=== PATIENT | female | born 1985 | race Caucasian/White ===

== ENCOUNTER 2016-06-17 05:32 | Inpatient (IN) | payer BC ==
[2016-06-17] VITALS (11 sets, daily range): BP systolic 122–149; BP diastolic 60–90; Ht 171.4 cm; Wt 123.4 kg
[~2016-06-17] VITALS: Ht 171.4 cm; Wt 123.4 kg
[2016-06-17] MEDS ORDERED: PRENATAL COMPLE1 TAB PO (06:04)
[2016-06-17] MEDS ORDERED: FERROUS SULFAT325 MG PO (06:05)
[2016-06-17 06:58] LABS: HEMOGLOBIN 11.2 g/dL (12-16); MCH 27.5 pg (26.0-34.0); MCV 85.8 fL (80.0-100.0); MEAN PLATELET VOLUME 12.3 fL (7.4-10.4); RBC 4.08 10x6/uL (4.00-5.40); RDW 14.9 % (11.5-14.5)
[2016-06-17 08:24] LABS: APPEARANCE HAZY (CLEAR); BILIRUBIN NEGATIVE (NEGATIVE); COLOR YELLOW (YELLOW); EPITHELIAL CELLS 0-5 /hpf (0-5); GLUCOSE NEGATIVE (NEGATIVE); KETONE NEGATIVE (NEGATIVE); LEUKOCYTE ESTERASE NEGATIVE (NEGATIVE); NITRITE NEGATIVE (NEGATIVE); PROTEIN TRACE mg/dL (NEGATIVE); RED CELLS - URINE 0-5 /hpf (0-5); UROBILINOGEN NORMAL (NORMAL); WHITE CELLS - URINE OCC /hpf (0-5)
[2016-06-17 08:25] LABS: BACTERIA FEW /hpf (NONE SEEN); MUCUS <1+ /lpf (NONE SEEN)
--- NOTE | 2016-06-17 09:25 | NUR ---
PALPATED FUNDUS FIRM AND MIDLINE
--- NOTE | 2016-06-17 09:44 | NUR ---
PATIENT RECEIVED TO ROOM 1215. SHE IS AWAKE AND TALKATIVE. INITIALLY, SHE WAS WITHOUT COMPLAINTS OF PAIN, REMAINING NUMB. BY THE TIME I SET UP HER [place] ATTORNEY AND GOT IVF INFUSING, HER PAIN WAS INTENSIFING. BULKY DRESSING IS C/D/I, SCD'S ARE ON AND PUMPING, FF, MIDLINE, BLEEDING MODERATE. IV SITE TO THE RIGHT HAND IS WITHOUT REDNESS, SWELLING. ICE PACK PLACED ON THE INCISION. ICE PROVIDED IN CUP FOR HER TO CHEW, PER REQUEST. FOB IN THE WAITING ROOM WITH TODDLER, PER MOB REQUEST. NURSERY NURSE IN TO VISIT, RULES FOR BABY'S SAFETY DISCUSSED.
--- NOTE | 2016-06-17 10:10 | NUR ---
TORADOL GIVEN. PATINET RATES PAIN A 9, PRIMARILY ON THE RIGHT SIDE OF THE ABDOMINAL INCISION.
--- NOTE | 2016-06-17 10:20 | NUR ---
FF, MIDLINE, BLEEDING SMALL.
--- NOTE | 2016-06-17 14:20 | NUR ---
PATIENT'S BLEEDING SMALL. FF AT THE UMBILICUS. HER URINE IS PATENT TO THE BEDSIDE UROMETER. SHE HAS HAD 150CC OF URINE OUT PUT SINCE TO THE FLOOR. ENCOURAGED HER TO INCREASE HER FLUID INTAKE, FRESH ICE WATER GIVEN. IVF INFUSING PER ORDERS. PATIENT STATES THAT HER PAIN IS WELL CONTROLLED. "I FEEL MUCH BETTER SINCE YOU GAVE ME THAT TORADOL." CURRENTLY RATES HER PAIN A 3. POSITIONED FOR COMFORT AND ICE BAG REPLENISHED.
--- NOTE | 2016-06-17 16:37 | NUR ---
PATIENT SITTING UP IN HER BED, HOLDING HER INFANT. SHE DENIES NEEDS AT THIS TIME. CONFIRMS THAT THE DOUBLE NEEDLE OPERATOR IS CONTROLLING HER PAIN.
--- NOTE | 2016-06-17 17:47 | NUR ---
PATIENT SITTING UP IN HER BED. DENIES DISCOMFORT. BLEEDING SMALL. MOTHER IN LAW AT THE BEDSIDE HOLDING INFANT. 150CC OF URINE DRAINED FROM BLADDER TO [facility] UROMETER AT THIS TIME, REMAINS TRANSPARENT, GREEN.
--- NOTE | 2016-06-17 18:47 | NUR ---
FOB AND SIBLING HERE. INTRODUCTIONS MADE TO THE INFANT. NO NEEDS NOTED. ALL MEMBERS HAPPY AND VISITING.
--- NOTE | 2016-06-17 19:35 | NUR ---
PM ROUNDS MADE, PT IS TALKING TO OTHER DAUGHTER ON TELEPHONE, INFORMED PT THAT I WILL COME BACK TO DO ASSESSMENT, PT VERBALIZES UNDERSTANDING, POC DISCUSSED WITH PT ABOUT 12 HOUR POST OP, PT VERBALIZES UNDERSTANDING, DENIES NEEDS AT THIS TIME
--- NOTE | 2016-06-17 20:15 | NUR ---
PT STILL VISITING WITH FAMILY AND FRIENDS, DENIES NEEDS AT THIS TIME
--- NOTE | 2016-06-17 21:04 | NUR ---
ROUNDS MADE, PT STATES "I THINK THIS IV IS LEAKING", TUBING CONNECTION NOTE TO BE DRIPPING, MEETING PLANNER STOPPED, IV CONVERTED TO SALINE LOCK, FLUSHED WITH 10 MLS OF NS WITH NO DIFFICULTY, ADM PERCOCET AND MOTRIN PO PER MD ORDERS, SEE EMAR, PT DENIES ANY PROBLEMS TAKING PERCOCET, PT GOING TO BREASTFEED SHORTLY AND WOULD LIKE TO HAVE ASSESSMENT DONE AFTER THAT, PT DENIES FURTHER NEEDS AT THIS TIME
--- NOTE | 2016-06-17 21:30 | NUR ---
PT AT THIS TIME, PT'S MOTHER IN LAW AT BEDSIDE
--- NOTE | 2016-06-17 22:15 | NUR ---
PT FINISHED , BABY TO NSY VIA OPEN CRIB CART PER THIS RN, ASSESSMENT PER FLOW SHEET, VS OBTAINED, FF, ML, U/1, MOD BLEEDING NOTED WITH NO CLOTS, GARCIA CATH REMOVED, TIP INTACT, EMPTIED 1200 MLS OF GREEN TINGED URINE, PT UP TO BR WITH ASSISTANCE, BLANCA CARE DONE WITH WET WARM WASH CLOTHS, GOWN, BLANCA PAD AND PANTIES APPLIED, PINK PAD AND BLUE CHUX CHANGED, PT BACK TO BED, SCD'S REAPPLIED AND WORKING PROPERLY, FRESH ICE PACK TO ABD, PT REQUESTED AND SERVED JELLO AND CRISTIAN CRACKERS, ANOTHER RECLINER AND BEDDING PROVIDED TO PT'S MOTHER IN LAW, PT DENIES FURTHER NEEDS AT THIS TIME
--- NOTE | 2016-06-18 00:05 | NUR ---
PT RESTING WITH EYES CLOSED, RESP QUIET, NO DISTRESS NOTED, LEFT UNDISTURBED AT THIS TIME
--- NOTE | 2016-06-18 00:35 | NUR ---
BABY TO NSY VIA OPEN CRIB CART PER NSY NURSE
--- NOTE | 2016-06-18 01:02 | NUR ---
PT , VS OBTAINED, ADM PERCOCET PO PER MD ORDERS, SEE EMAR, PT STATES "I'M GOING TO HAVE TO GET UP TO PEE", BABY TO PT'S MOTHER IN LAWS ARMS, PT UP TO BR WITH ASSISTANCE, VOIDED BY SELF WITH NO DIFFICULTY, BLANCA BOTTLE PROVIDED FOR BLANCA CARE, ASSISTED PT WITH BLANCA PAD AND PANTIES , PT BACK TO BED, SCD'S REAPPLIED AND WORKING PROPERLY, BABY BACK TO PT'S ARMS FOR FEEDING, PT DENIES FURTHER NEEDS
--- NOTE | 2016-06-18 02:09 | NUR ---
PT TRAPPER BIRD LIGHT, PT DOZING OFF, BABY TO NSY VIA OPEN CRIB CART PER THIS RN, PT DENIES FURTHER NEEDS AT THIS TIME, PT'S MOTHER IN LAW AT BEDSIDE
--- NOTE | 2016-06-18 02:40 | NUR ---
PT RESTING WITH EYES CLOSED, RESP QUIET, NO DISTRESS NOTED, LEFT UNDISTURBED AT THIS TIME
--- NOTE | 2016-06-18 03:42 | NUR ---
PT GLASS PRESSER LIGHT, PT UP TO BR WITH ASSISTANCE, GAIT STEADY, VOIDED BY SELF WITH NO DIFFICULTY, BLANCA CARE PER PT, ASSISTED PT WITH BLANCA PAD AND PANTIES, PT BACK TO BED, SCD'S REAPPLIED AND WORKING PROPERLY, PTS MOTHER IN LAW HANDS BABY BACK TO PT FOR DIAPER CHANGE, WIPES AND DIAPER HANDED TO PT, PT DENIES FURTHER NEEDS
[2016-06-18 05:18] VITALS: BP 119/72
--- NOTE | 2016-06-18 05:18 | NUR ---
PTS MOTHER IN LAW AT CLIPPER MACHINE OPERATOR, REPORTS THAT PT NEEDS TO USE THE BR, THIS RN TO ROOM, PT UP TO BR WITH ASSISTANCE, GAIT STEADY, VOIDED BY SELF WITH NO DIFFICULTY, DOES OWN BLANCA CARE, ASSISTED WITH BLANCA PAD AND PANTIES, PT BACK TO BED, REQUESTS SCD'S OFF AT THIS TIME, ADM PERCOCET AND MOTRIN PO PER MD ORDERS, SEE EMAR, VS OBTAINED, FRESH ICE PACK TO ABD, PT REQUESTED AND SERVED JELLO, DENIES FURTHER NEEDS, MOTHER IN LAW HOLDING BABY
--- NOTE | 2016-06-18 06:45 | NUR ---
PT , DENIES NEEDS AT THIS TIME
--- NOTE | 2016-06-18 07:00 | NUR ---
SHIFT REPORT TO DAY SHIFT
[2016-06-18 07:27] LABS: RAPID PLASMA REAGIN Non Reactive (Non Reactive)
[2016-06-18 07:53] LABS: BASOPHILS 0.1 % (0.0-2.0); EOSINOPHILS 1.5 % (0-7); HEMATOCRIT 31.7 % (36.0-48.0); HEMOGLOBIN 10.1 g/dL (12-16); IMMATURE GRANULOCYTES 0.3 % (0-5); LYMPHOCYTES 10.4 % (15-50); MCH 27.3 pg (26.0-34.0); MCHC 31.9 g/dL (31.0-37.0); MCV 85.7 fL (80.0-100.0); MEAN PLATELET VOLUME 12.3 fL (7.4-10.4); MONOCYTES 8.6 % (2-11); NEUTROPHILS 79.1 % (40-80); PLATELET COUNT 150 10x3/uL (130-400); WBC 8.9 10x3/uL (4.8-10.8)
--- NOTE | 2016-06-18 09:45 | NUR ---
PATIENT SITTING UP IN HER BED, HI FOWLERS, PILLOWS ALL AROUND HER. SHE CONFIRMS THAT SHE IS COMFORTABLE. PAIN IS LOCALIZED AT HER INCISION, IT IS A BURNING SENSATION. PERCOCET GIVEN. SHE WOULD LIKE TO SHOWER, PLANS MADE. SCOUT JALLOH AND HER IN LAWS ARE AT THE BEDISIDE.
--- NOTE | 2016-06-18 10:45 | NUR ---
PATIENT ASSISTED WITH HER SHOWER. BANDAGE REMOVED FROM THE BIKINI LINE INCISION. EDGES ARE WELL APPROXIMATED WITH DERMABOND. LINENS CHANGED. ASSISTED HER BACK TO HER BED. FRESH ICE GIVEN, DENIED OTHER NURSE.
--- NOTE | 2016-06-18 11:30 | NUR ---
PATIENT GIVEN MOTRIN IT IS TIME. SHE DENIES OTHER NEEDS AT THIS TIME.
--- NOTE | 2016-06-18 13:30 | NUR ---
PATIENT GIVEN PERCOCET PER REQUEST. SHE IS CURRENTLY BREAST FEEDING. SHE HAS PROPPED UP ON PILLOWS AND DENIES OTHER NEEDS AT THIS TIME.
--- NOTE | 2016-06-18 15:40 | NUR ---
SCOTTNET UP AMBULATING AROUND HER ROOM. BLANKET PLACED ON RECLINER FOR HER SO THAT SHE CAN SIT UP A WHILE. ENCOURAGED HER TO SIT UP STRAIGHT. WE DISCUSSED AN ABDOMINAL BINDER, SHE'D BEEN TOLD ABOUT ONE IN THE CLINIC AND FEELS THAT IT WOULD BE BENIFICIAL TO HER. WILL ENQUIRE ABOUT ONE.
--- NOTE | 2016-06-18 17:03 | NUR ---
CHICO UP TO THE RESTROOM INDEPENDENTLY. GAVE HER THE BACK AFTER SHE RETURNED TO BED. SHE DENIES OTHER NEEDS AT THIS TIME.
--- NOTE | 2016-06-18 19:40 | NUR ---
PT RECEIVED UP USING RESTROOM AT THIS TIME. NO NEEDS NOTED.
--- NOTE | 2016-06-18 20:04 | NUR ---
CHICO OUT AMBULATING IN THE HALLWAY.
--- NOTE | 2016-06-18 20:04 | NUR ---
PATIENT OUT AMBULATING IN THE HALLWAY
--- NOTE | 2016-06-18 20:50 | NUR ---
PT SITTING UP IN BED AT THIS TIME WATCHING TV. FOB AND AT BEDSIDE. INFORMED PT I WOULD RETURN TO CHECK VITALS AND DO ASSESSMENT IN A FEW MINUTES. DENIES NEEDS.
--- NOTE | 2016-06-18 21:18 | NUR ---
PT AT THIS TIME. STATES SHE WILL BE FINISHED IN APPROX 15 MINUTES. INFORMED PT I WOULD RETURN THEN. DENIES NEEDS.
--- NOTE | 2016-06-18 21:58 | NUR ---
PT STILL INFANT AT THIS TIME. DENIES NEEDS.
[2016-06-18 22:35] VITALS: BP 137/78
--- NOTE | 2016-06-18 22:35 | NUR ---
TO NURSERY AT THIS TIME. PT LYING IN BED WATCHING TV. VSS. S/L NOTED TO RIGHT HAND. DRESSING CDI. HEART RRR. LUNG SOUNDS CLEAR BILATERALLY. BOWEL SOUNDS ACTIVE X 4 QUADRENTS. ABDOMEN SOFT. FUNDUS FIRM AND MIDLINE U/2. SCANT LOCHIA RUBRA NOTED TO BLANCA PAD AT THIS TIME. PT STATES LOCHIA HAS BEEN LIGHT THROUGHOUT THE DAY. LOW TRANSVERSE INCISION NOTED ABDOMEN WITH DERMABOND. NO REDNESS, SWELLING, OR PURULENT DRAINAGE NOTED TO INCISION. PT REQUESTS JELLO AT THIS TIME. DENIES OTHER NEEDS. BED LOW. PHONE AND CALL LIGHT IN REACH. SRX2.
[2016-06-19 00:35] VITALS: BP 126/76
--- NOTE | 2016-06-19 00:35 | NUR ---
PT WATCHING TV AT THIS TIME WITH ON CHEST. VSS. PT REQUESTS BE TAKEN TO NURSERY AT THIS TIME. DENIES OTHER NEEDS. BED LOW. PHONE AND CALL LIGHT IN REACH. SRX2.
--- NOTE | 2016-06-19 02:10 | NUR ---
ADMINISTERED MOTRIN PO PER ORDERS AT THIS TIME FOR PAIN PT RATES 11/18. PT STATES PAIN IS SHARP SHOOTING PAIN ON THE LEFT SIDE THAT SHOOTS DOWN THE LEFT LEG. INCISION SITE FREE OF DRAINAGE. NO OPENINGS NOTED AT THIS TIME. PT REQUESTS TO USE RESTROOM AT THIS TIME. DENIES OTHER NEEDS. BED LOW. PHONE AND CALL LIGHT IN REACH. SRX2.
--- NOTE | 2016-06-19 03:10 | NUR ---
PT MEDICATED WITH PERCOCET FOR C/O PAIN 08/18. PT AT THIS TIME. SANDWICH TRAY PROVIDED PER PT REQUEST. MIGUEL NARAYAN
[2016-06-19 04:00] VITALS: BP 133/77
--- NOTE | 2016-06-19 04:00 | NUR ---
PT SITTING UP IN BED HOLDING IN ARMS AT THIS TIME LOOKING LOVINGLY AT INFANT. VSS. PT REQUESTS INFANT BE TAKEN TO NURSERY AT THIS TIME. DENIES OTHER NEEDS. BED LOW. PHONE AND CALL LIGHT IN REACH. SRX2.
--- NOTE | 2016-06-19 05:22 | NUR ---
PT RESTING QUIETLY AT THIS TIME WITH EYES CLOSED. AROUSED EASILY. DENIES NEEDS. BED LOW. PHONE AND CALL LIGHT IN REACH. SRX2.
--- NOTE | 2016-06-19 06:17 | NUR ---
PT RESTING QUIETLY AT THIS TIME. DENIES NEEDS. BED LOW. PHONE AND CALL LIGHT IN REACH. SRX2.
[2016-06-19 07:45] VITALS: BP 134/82
--- NOTE | 2016-06-19 07:45 | NUR ---
PT AWAKE, ALERT, UP AMBULATING ABOUT ROOM. LOW TRANSVERSE ABD INC C/D/I WITH DERMABOND, COVERED WITH BLANCA PAD FOR COMFOORT. ATTEMPTED TO PLACE ABD BINDER, NEED NEXT LARGER SIZE. SCARIFIER OPERATOR ADVISED. NO OTHER NEEDS AT THIS TIME. SEE EMAR FOR PAIN RX ADMINISTERED. ANTICIPATES D/C TODAY.
--- NOTE | 2016-06-19 07:47 | NUR ---
PERCOCET 10 AND MOTRIN 600 MG GIVEN TOGETHER REQUESTED FOR INCISIONAL PAIN AND BURNING.
--- NOTE | 2016-06-19 08:15 | NUR ---
SITTING UP IN BED NURSING .
--- NOTE | 2016-06-19 09:16 | NUR ---
DISCUSSED NEED FOR RHOGAM WITH PT. OFFERED TDAP AND SHE DECLINED.
--- NOTE | 2016-06-19 09:27 | NUR ---
RHOGAM EXPLAINED AND GIVEN IM IN LEFT HIP UOQ.
[2016-06-19] MEDS ORDERED: IBUPROFEN600 MG PO (10:34)
[2016-06-19] MEDS ORDERED: PERCOCET 5-3251 TAB PO (10:35)
--- NOTE | 2016-06-19 10:35 | NUR ---
LEMON IONE COLA PROVIDED.
--- NOTE | 2016-06-19 11:15 | NUR ---
ERWIN YA PROVIDED.
--- NOTE | 2016-06-19 11:38 | NUR ---
DR. ADAMS HERE FOR ROUNDS.
--- NOTE | 2016-06-19 12:34 | NUR ---
D/C INSTRUCTIONS EXPLAINED TO PT. VOICED UNDERSTANDING. COPIES OF ALL GIVEN, WELL WRITTEN RX'S FOR PERCOCET AND MOTRIN.
--- NOTE | 2016-06-19 13:12 | NUR ---
D/C'D HOME WITH , VIA WC TO PRIVATE CAR.
--- NOTE | 2016-06-19 19:19 | OP ---
PATIENT NAME: ARTURO OTT MEDICAL RECORD: [id number] :84 LOCATION:[facility]1215 ADMISSION DATE:06/17/16 SURGEON: ALICIA WILLARD MD DATE OF OPERATION: 06/17/2016 PREOPERATIVE DIAGNOSES: 1. Intrauterine at 38 weeks and 6 days. 2. Previous section times 1. 3. Spontaneous rupture of membranes. 4. Declined trial of labor for repeat section. 5. Desired sterility. POSTOPERATIVE DIAGNOSES: 1. Intrauterine at 38 weeks and 6 days. 2. Previous section times 1. 3. Spontaneous rupture of membranes. 4. Declined trial of labor for repeat section. 5. Desired sterility. 6. Delivered. SURGEON: Alicia Willard MD. ANESTHESIA: Reginaldo Mari MD and Nori Delong CRNA with combined spinal-epidural anesthesia. PROCEDURE: 1. Repeat low-transverse . 2. Sterilization via bilateral distal salpingectomy. FINDINGS: Delivery of viable female from vertex presentation via repeat low transverse under combined spinal-epidural anesthesia at 8:03 a.m. with weight of 8 pounds 8 ounces and scores of 8 and 9 at one and five minutes respectively. No nuchal cord was noted. The cord was clamped and cut. The was bulb suctioned and handed to awaiting pediatric nursing personnel. The placenta was delivered manually intact with 3-vessel cord at 8:04 a.m. Twenty units of Pitocin and 1 liter of normal saline was begun IV. The fundus was noted to be firm. Uterus with 4 cm pedunculated fundal fibroid. Otherwise, normal appearing uterus, ovaries and tubes bilaterally. Bilateral distal salpingectomy performed for sterilization in the usual fashion. Excellent hemostasis was noted. The patient went to recovery room in stable condition and the to the nursery. DESCRIPTION OF PROCEDURE: After informed consent was given, the patient was taken to the operating room where a combined spinal-epidural anesthesia, was placed in the usual fashion and found to be adequate. She was placed in a dorsal supine position with leftward tilt. A Lemons catheter was placed with clear urine return noted. She was prepped and draped sterilely. A Pfannenstiel skin incision was then made through her previous scar and carried down to the underlying layer of fascia. The fascia was incised in the midline and the fascial incision extended bilaterally with the Mcbride scissors. The superior portion of the fascial incision was grasped with 2 Zara clamps and the rectus muscles dissected off sharply and bluntly. Attention was then turned to the inferior portion of the fascial incision, which was again grasped with 2 Zara clamps and the rectus muscles dissected off sharply and bluntly. The rectus muscles were in the midline, the peritoneum identified and entered OPERATIVE REPORT [id number] ARTURO OTT bluntly with a finger. This incision was extended superiorly and inferiorly with good visualization of the bladder. The bladder blade was inserted and the vesicouterine peritoneum was grasped with smooth pickups and entered sharply with Metzenbaum scissors. This incision was extended bilaterally and a bladder flap created digitally. The bladder blade was reinserted. The hysterotomy was created with the knife and this was extended bilaterally bluntly and the 's head delivered atraumatically. No nuchal cord was noted. The cord was clamped times 2 and cut. The was bulb suctioned and handed to awaiting pediatric nursing personnel. The placenta was then delivered manually intact and passed off the field as specimen. Cord blood was obtained. The uterus was exteriorized, cleared of all clots and debris. The interior of the uterus was wiped with a moist lap sponge. The hysterotomy was then closed with 0 chromic in a running locked fashion. Excellent hemostasis was noted. The lap sponges were then placed over the hysterotomy and the uterus was placed upright. The right fallopian tube was identified, followed out to the fimbriated edge, grasped with 2 Zara clamps. A defect was created in the mesosalpinx and hemostats were used then to clamp the fallopian tube proximally and the mesosalpinx in 2 regions distally. The Bovie cautery was then used to excise the fallopian tube and fimbria and this was passed off the field as specimen. The 3 pedicles were then suture ligated with 3-0 Vicryl stick ties and excellent hemostasis was noted. Attention was turned to the opposite side. The left fallopian tube was identified, grasped with a Dinora clamp, followed out to the fimbriated edge. A defect was created in the mesosalpinx with the Bovie cautery. Hemostats were used to clamp the proximal fallopian tube and the mesosalpinx in 2 regions and the Bovie cautery was then used to excise the fallopian tube and fimbria and this was passed off the field as specimen. The pedicles were then suture ligated with 3-0 Vicryl stick ties and excellent hemostasis was again noted. The packing was removed from the hysterotomy and it was noted to be hemostatic. The uterus was returned to the abdomen. The abdomen was irrigated profusely and noted to be hemostatic. Onesimo dust was placed over the hysterotomy to aid additionally in hemostasis. The rectus muscles were reapproximated in the midline with 3 interrupted chromic sutures. The fascia was closed with #1 Vicryl in a running fashion, locking the first suture. The subcutaneous tissue was irrigated and any bleeders cauterized with the Bovie and when noted to be sufficiently dry was closed in 2 layers with 3-0 Vicryl in a running fashion and the skin was closed with 3-0 Monocryl in a subcuticular fashion. Dermabond and pressure dressing were applied. The clear urine was noted at completion of the procedure. The patient tolerated procedure well. Sponge, lap, needle and instrument counts reported correct times 2 and the patient went to the recovery room in stable condition, the to the nursery. ESTIMATED BLOOD LOSS: 800 cc. URINE OUTPUT: 200 cc. SPECIMENS: 1) Placenta 2) Cord Blood 3) R distal fallopian tube/fimbria 4) L distal fallopian tube/fimbria COMPLICATIONS: None. TRANSINT:[id number] Voice Confirmation ID: [id number] DOCUMENT ID: [id number] OPERATIVE REPORT [id number] ARTURO OTT RENEE MD at 1919 CC: [id number] DICTATION DATE: 06/19/16 1115 ENGINEERING AND SCIENTIFIC PROGRAMMER: 06/19/16 1618 DIS IN 06/19/16 [facility] [address] [place] [address]
== END 2016-06-19 13:12 | disposition home or self-care (01) | DRG 766 ==
LOC: D.LD 05:32 → D.WS 05:32 → D.SDCHOLD 06-23 07:30
PROVIDERS: Specialist; ADMIT Obstetrics & Gynecology
PROC: 10D00Z1 Extraction of Products of Conception, Low, Open Approach (ICD-10-PCS; principal; 2016-06-17 07:00)
DX: O34.219 Maternal care for unspecified type scar from previous cesarean delivery (principal); Z3A.38 38 weeks gestation of pregnancy; Z37.0 Single live birth; Z67.91 Unspecified blood type, Rh negative; O26.893 Other specified pregnancy related conditions, third trimester; O99.214 Obesity complicating childbirth; E66.01 Morbid (severe) obesity due to excess calories; Z68.34 Body mass index [BMI] 34.0-34.9, adult; O24.429 Gestational diabetes mellitus in childbirth, unspecified control